=== PATIENT | female | born 1960 | race Caucasian/White ===

== ENCOUNTER 2018-04-15 10:01 | Outpatient (CLI) | payer OTHER ==
[2018-04-15] MEDS ORDERED: Gadobenate Dimeglumine 529 MG/1 ML (20ML VIAL) ONE (10:46)
--- NOTE | 2018-04-15 15:04 | MRI ---
MRI BRAIN WITH AND WITHOUT CONTRAST: Date: 04/15/18 HISTORY: Speech impairment x2 weeks. Brain tumor removal. COMPARISON: Prior MRI performed at [facility] is not available. TECHNIQUE: Brain MRI is performed with and without intravenous Gadolinium administration. Multisequential, multi planar imaging is performed. FINDINGS: There is evidence of hemorrhage, vasogenic edema involving a mass centered in the left temporal lobe. There is mild sulcal effacement of the left temporal sulci. No significant midline shift. No evidenc e of hydrocephalus. There is associated T2 and STIR signal hyperintensity. On the postcontrast images , there is peripheral heterogeneous enhancement. This lesion measures 2.6 cm mediolateral x 2.6 cm an terior posterior x 2.0 cm craniocaudal. Additional areas of abnormal enhancement in the cerebrum and cerebellum are not appreciated. Central arterial flow-voids are maintained. Absent restricted diffusion. No significant opacification of the paranasal sinuses. IMPRESSION: Partially hemorrhagic, peripherally enhancing lesion involving the left temporal lobe. Imaging featur es are worrisome for high grade neoplasm, either primary or metastatic. POS: [facility]
== END 2018-04-15 10:02 | disposition home or self-care (01) ==
LOC: MRI 10:01
PROVIDERS: ATTEND Surgery
DX: G93.9 Disorder of brain, unspecified (principal)
CPT/HCPCS: 70553; A9579

== ENCOUNTER 2018-04-15 11:30 | Inpatient (IN) | payer OTHER ==
[2018-04-16] MEDS ORDERED: Bacitracin Zinc Ointment 30 gm TUBE ONE (06:29)
[2018-04-16] MEDS ORDERED: Sodium Chloride 0.9% 10 ML ONE (06:29)
[2018-04-16] MEDS ORDERED: Thrombin 5000 UNITS/5 ML VIAL ONE (06:29)
[2018-04-16] MEDS ORDERED: CEFAZOLIN 2 GM/50 ML BAG ONE (06:33)
[2018-04-16] MEDS ORDERED: Midazolam HCl 2 mg/2 ml Vial ONE (06:59)
[2018-04-16] MEDS ORDERED: Albumin 5% 0 ML ONE (07:01)
[2018-04-16] MEDS ORDERED: Fentanyl 250 MCG/5 ML VIAL ONE (07:01)
[2018-04-16] MEDS ORDERED: levETIRAcetam 500 MG/100 ML PREMIX BAG ONE (07:02)
[2018-04-16] MEDS ORDERED: levETIRAcetam 1000 MG/100 ML PREMIX BAG ONE (07:02)
[2018-04-16 09:41] VITALS: BMI 35.2
[2018-04-16] MEDS ORDERED: SUGAMMADEX SODIUM 200 MG/2 ML VIAL ONE (09:50)
[2018-04-16] MEDS ORDERED: Fentanyl 100 MCG/2 ML VIAL ONE (10:07)
[2018-04-16] MEDS ORDERED: Promethazine HCl 25 MG/ML VIAL SLOW IVP PRN (10:52)
[2018-04-16] MEDS ORDERED: Ondansetron HCl/PF 4 MG/2 ML Vial IVP PRN (10:52)
[2018-04-16] MEDS ORDERED: HYDROmorphone 2 MG/ML VIAL SLOW IVP PRN (10:52)
[2018-04-16] MEDS ORDERED: PACU-Morphine 4MG/ML VIAL SLOW IVP PRN (10:52)
[2018-04-16] MEDS ORDERED: Morphine Sulfate 2 MG/ML SYRINGE SLOW IVP PRN (10:52)
[2018-04-16] MEDS ORDERED: Promethazine HCl 25 MG/ML VIAL IM PRN (10:52)
[2018-04-16] MEDS ORDERED: Senokot S 8.6-50 MG TAB PO PRN (10:58)
[2018-04-16] MEDS ORDERED: Ondansetron PF 4 MG/2 ML Vial IVP PRN (10:58)
[2018-04-16] MEDS ORDERED: Dexamethasone 20 MG/5 ML VIAL ONE (12:09)
[2018-04-16] MEDS ORDERED: PROPOFOL 200 MG/20 ML VIAL ONE (12:09)
[2018-04-16] MEDS ORDERED: Lidocaine 1% PF 5 ML VIAL ONE (12:09)
[2018-04-16] MEDS ORDERED: Ondansetron PF 4 MG/2 ML Vial ONE (12:09)
[2018-04-16] MEDS: Sodium Chloride 0.9% 1,000 ML IV SCH (12:32)
[2018-04-16] MEDS ORDERED: Metoprolol Tartrate 5 MG/5 ML VIAL ONE (13:19)
[2018-04-16] MEDS: Labetalol HCl 100 MG/20 ML VIAL SLOW IVP PRN (13:22)
[2018-04-16] MEDS: Dexamethasone 4 MG TAB PO SCH ×3 (13:22→20:27)
[2018-04-16] MEDS: CEFAZOLIN 2 GM/50 ML-DEXTROSE 2 GM in Premix Bag 1 BAG IVPB SCH ×2 (13:23→22:03)
[2018-04-16] MEDS: HYDROcodone/Acetaminophen 5/325 mg Tablet PO PRN (16:15)
--- NOTE | 2018-04-16 18:29 | OP ---
DATE OF PROCEDURE: 04/16/2018 OPERATING ROOM: OR 11. 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 PROCEDURE: Left temporal stereotactic craniotomy for tumor resection with use of intraoperative stereotaxy. DESCRIPTION OF PROCEDURE: After informed consent was obtained from the patient, the patient was brought to OR 11. Proper patient pause and identification was carried out. She was placed in excellent general endotracheal anesthesia and positioned supine on the OR table with a generous bump placed under her left hemithorax and her head turned to the right. Her head was secured with the Nguyen ariane head control clerk and the stereotactic frame and markers registered. We identified the boundaries of the tumor. A linear kassandra was made over this area. This area was sterilely cleansed, prepared, and draped, and a small amount of hair was clipped. Following sterile cleansing, preparation, draping, and confirmation of sterile stereotactic registration, we then opened the linear incision. Ciarra hole was fashioned and a craniotomy was performed. The dura was opened. Tumor was encountered. This was taken out. Hemostasis was maximized. 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 Copious irrigation occurred throughout. The wound was then maximally hemostased, copiously irrigated. The bone was then reapproximated with titanium plates and screws and closed in anatomical layers. The patient then emerged from anesthesia. Job ID: [id number]
[2018-04-16] MEDS: TROSPIUM 20 MG TABLET PO SCH (20:27)
[2018-04-16] MEDS: Atorvastatin Calcium 10 MG TAB PO SCH (20:27)
[2018-04-16] MEDS: levETIRAcetam 500 MG TAB PO SCH (20:27)
[2018-04-17] MEDS: Sodium Chloride 0.9% 1,000 ML IV SCH ×2 (00:16→13:41)
[2018-04-17] MEDS: Acetaminophen 325 MG TAB PO PRN ×2 (00:17→18:30)
[2018-04-17] MEDS: CEFAZOLIN 2 GM/50 ML-DEXTROSE 2 GM in Premix Bag 1 BAG IVPB SCH ×3 (05:27→21:51)
[2018-04-17 05:41] LABS: Hemoglobin 13.8 g/dL (12.0-16.0); Mean Corpuscular HGB CONC 33.9 g/dL (32.0-36.0); Mean Corpuscular Hemoglobin 30.6 pg (27.0-31.0); Mean Corpuscular Volume 90.2 fL (78.0-98.0); Mean Platelet Volume 7.5 fL (7.4-10.4); Platelet Count 252 thou/uL (130-400); RBC Distribution Width 12.5 % (11.5-14.5); Red Blood Cell (RBC) Count 4.52 mill/uL (4.20-5.40); White Blood Cell (WBC) Count 20.3 thou/uL (4.8-10.8)
[2018-04-17 05:59] LABS: Anion Gap 15 mmol/L (10-20); BUN (Urea Nitrogen) 22 mg/dL (9.8-20.1); Calc. Creatinine Clearance 128 mL/min (70-130); Carbon Dioxide 21 mmol/L (22-29); Chloride 107 mmol/L (98-107); Estimated GFR-MDRD 79; Glucose 153 mg/dL (70-105); Potassium 4.5 mmol/L (3.5-5.1); Sodium 138 mmol/L (136-145)
[2018-04-17 06:18] LABS: Band 8 % (5-11); Lymphocytes 3 % (21-51); MDiff Complete? YES; Monocytes 4 % (0-10); Neutrophil 85 % (42-75)
--- NOTE | 2018-04-17 07:37 | CT ---
CT OF THE BRAIN WITHOUT CONTRAST: Date: 04/17/18 INDICATION: History of craniotomy with tumor removal. COMPARISON: Prior MRI of the brain dated 04/15/18. FINDINGS: There is a left parietotemporal craniectomy. There is a resection cavity involving the left lateral t emporal and parietal lobes with associated gas, edema, and hemorrhage filling the resection cavity in the site of the previously seen partially hemorrhagic lesion of the left temporoparietal region. Sma ll amount of pneumocephalus is seen overlying the resection cavity and underlying the craniectomy fla p. Small amount of pneumocephalus is seen along the anterior aspect of the left cranial vault. No mid line shift is grossly evident. No hydrocephalus is noted. No definite acute infarct is noted. Basilar cisterns remain patent. Mastoid air cells are clear. IMPRESSION: 1. Postoperative changes from a left parietotemporal craniectomy with interval resection of previous ly seen partially hemorrhagic lesion involving the left parietotemporal lobe. There is gas and hemorr arielle, as well as edema, seen involving the resection bed. There is scattered pneumocephalus within th e brain. 2. No evidence of hydrocephalus or gross midline shift. POS: [facility]
[2018-04-17] MEDS: Venlafaxine HCl XR 75 MG CAP PO SCH (09:47)
[2018-04-17] MEDS: levETIRAcetam 500 MG TAB PO SCH ×2 (09:47→21:51)
[2018-04-17] MEDS: Dexamethasone 4 MG TAB PO SCH (09:47)
[2018-04-17] MEDS: TROSPIUM 20 MG TABLET PO SCH ×2 (09:47→21:51)
[2018-04-17] MEDS: HYDROcodone/Acetaminophen 5/325 mg Tablet PO PRN (10:43)
--- NOTE | 2018-04-17 11:03 | PRG ---
DATE OF SERVICE: SUBJECTIVE: Ms. Patel is postoperative day 1 from left inferior parietal lobule high-grade glioma resection stereotactic craniotomy. She has [id number] dysnomia and repetition, speech abnormality this morning, but otherwise is able to state words appropriately. She has a nonfocal motor exam. Her head wrap remains in place. We are continuing prophylactic levetiracetam and Decadron and will begin an 8-day taper in the next couple days. We will plan transfer to the floor and I anticipate either inpatient rehabilitation versus home prep sometime over the weekend. We will consult Physiatry. Job ID: [id number]
[2018-04-17] MEDS: Dexamethasone 1 MG TAB PO SCH ×2 (12:09→18:09)
--- NOTE | 2018-04-17 16:05 | ULT ---
ULTRASOUND WITH DOPPLER DUPLEX VENOUS LOWER EXTREMITIES BILATERAL: HISTORY: 58-year-old female with bilateral lower extremity edema. Prolonged immobility. TECHNIQUE: Color flow Doppler, spectral waveform analysis of pulsed Doppler, and grimaldo-scale imaging with emilio uli and augmentation, were used to evaluate the bilateral common femoral, femoral, popliteal, diversified crops farmworker ior tibial, and superficial femoral, veins; and the proximal portions of the profunda femoral and gre ater saphenous, veins. FINDINGS: There is normal compressibility, demonstration of blood flow by color Doppler and pulsed Doppler, and response to augmentation, in all interrogated veins. IMPRESSION: Negative. No deep vein thrombosis in the bilateral lower extremities. jn[] POS: [facility]
--- NOTE | 2018-04-17 19:24 | CON ---
DATE OF CONSULTATION: 04/17/2018 SERVICE: Pulmonary Medicine. REASON FOR CONSULT: ICU patient. HISTORY OF PRESENT ILLNESS: The patient is a 58-year-old white female with past medical history significant for about a week of word-finding difficulty. Ultimately, an MRI of the brain was performed and she had a partially hemorrhagic mass in the left cerebrum. She underwent an elective excision of that lesion yesterday and was placed in the ICU overnight for very close observation to make certain she did not have any significant neurologic deterioration. She presented to the hospital in her usual state of health. She has no history of lung disease. Denies fevers, chills, nausea, or vomiting. Pain is under very good control right now. She did not have any significant neurologic changes overnight. She continues to have a little bit of word-finding difficulties. PAST MEDICAL HISTORY: 1. Dyslipidemia. 2. Hypertension. 3. Coronary artery disease. 4. Obstructive sleep apnea. 5. Seizure disorder. 6. Remote history of tobacco abuse. 7. Major depressive disorder, currently euthymic. PAST SURGICAL HISTORY: 1. Right foot surgery for plantar fasciitis. 2. Cholecystectomy. 3. Bladder suspension. 4. Tubal ligation. 5. Cardiac catheterization. SOCIAL HISTORY: Negative for current significant tobacco, alcohol, or illicit drug use. She has no exposure to chemicals, dust, asbestos, or tuberculosis. She is . FAMILY HISTORY: Noncontributory. ALLERGIES: NO KNOWN DRUG ALLERGIES. MEDICATIONS: List of her inpatient medications was reviewed. No specific updates were made at this time. REVIEW OF SYSTEMS: General, head, ears, eyes, nose, throat, cardiovascular, respiratory, , musculoskeletal, neurologic, and skin are negative except as mentioned in the HPI. PHYSICAL EXAMINATION: VITAL SIGNS: Afebrile. Pulse is 69, blood pressure 138/77, respirations 18, and saturation 98% on room air. GENERAL: The patient is awake, alert, in no apparent distress. LUNGS: Excellent air entry with no prolonged expiratory phase, wheezing, rhonchi, or crackles present. HEART: Normal rate, regular. ABDOMEN: Soft, nontender, nondistended. Bowel sounds are positive. MUSCULOSKELETAL: No cyanosis or clubbing. There is no pitting in the bilateral lower extremities. NEUROLOGIC: Grossly nonfocal. LABORATORY DATA: WBC 20.3, hemoglobin 13.8, platelets 252,000. INR 1.1. Creatinine 0.75. Basic metabolic profile is otherwise unremarkable. IMAGING DATA: CT of the brain demonstrates postop changes from a left parietotemporal craniectomy with expected edema, and pneumocephalus. ASSESSMENT: 1. Brain mass, pathology pending. 2. History of seizure. 3. Leukocytosis, likely secondary to leukemoid reaction, and/or Decadron. DISCUSSION AND PLAN: The patient will remain in the ICU until cleared for transition to floor by Neurosurgery. Pulmonary Critical Care will continue to follow in this location, but when she arrives on the floor, she will have no further requirements per my opinion, and I will sign off. Please call with additional questions or concerns moving forward, should she leave the ICU. 70 minutes have been devoted to this patient in various activities. I personally reviewed all imaging studies and laboratory data noted within this document. For fifty percent of this time, I was interacting with the patient at the bedside or coordinating care with the care team. For the remainder of the time I was immediately available to the patient in the hospital unit. Job ID: [id number] [facility]
[2018-04-17] MEDS ORDERED: Piperacillin/Tazobactam 4.5 GM VIAL ONE (19:58)
[2018-04-17] MEDS: Atorvastatin Calcium 10 MG TAB PO SCH (21:51)
[2018-04-18] MEDS: Dexamethasone 1 MG TAB PO SCH ×5 (00:29→23:51)
[2018-04-18] MEDS: Sodium Chloride 0.9% 1,000 ML IV SCH ×2 (03:56→13:46)
[2018-04-18] MEDS: Acetaminophen 325 MG TAB PO PRN ×2 (05:10→19:44)
[2018-04-18] MEDS: CEFAZOLIN 2 GM/50 ML-DEXTROSE 2 GM in Premix Bag 1 BAG IVPB SCH ×3 (05:11→22:12)
[2018-04-18] MEDS: TROSPIUM 20 MG TABLET PO SCH (08:58)
[2018-04-18] MEDS: Oxybutynin 5 MG TAB PO SCH (08:58)
[2018-04-18] MEDS: Venlafaxine HCl XR 75 MG CAP PO SCH (08:58)
[2018-04-18] MEDS: levETIRAcetam 500 MG TAB PO SCH ×2 (08:58→20:06)
[2018-04-18] MEDS ORDERED: VESICARE 10 MG PO SCH (09:30)
--- NOTE | 2018-04-18 09:49 | PRG ---
DATE OF SERVICE: 04/18/2018 NEUROSURGERY PROGRESS NOTE I saw Ms. Patel on the surgical floor this morning. She tells me it is still hard to talk correctly since she has difficulty with interpreting language and finding the right words to say, but she is able to communicate with some effort. is concerned that she is not taking her Pristiq or her VESIcare for incontinence and for her depression. Overnight, the vitals have been stable. I do not see any fevers recorded. Ms. Patel is wide awake. She has some dysphagia more so than any right-sided weakness. In fact, the extremities are moving quite well. She seems safe for activities of daily living with the exception of communication. Ms. Patel's dressing can be removed. She can start to bathe. She can pat the incision dry with a towel should it get wet or have shampoo cover it. She can be ready for discharge either today or tomorrow, in my view. The reports that he is not very excited about the possibility of inpatient rehabilitation and would rather take her home and get outpatient therapy should she need it. Speech therapy would be the most beneficial therapy, in my view. We will make arrangements for her to be discharged when she is safe. Job ID: [id number]
[2018-04-18] MEDS: Atorvastatin Calcium 10 MG TAB PO SCH (20:06)
[2018-04-19] MEDS: Sodium Chloride 0.9% 1,000 ML IV SCH (04:07)
[2018-04-19] MEDS: Acetaminophen 325 MG TAB PO PRN ×2 (04:07→10:13)
[2018-04-19] MEDS: Labetalol HCl 100 MG/20 ML VIAL SLOW IVP PRN (04:20)
[2018-04-19] MEDS: CEFAZOLIN 2 GM/50 ML-DEXTROSE 2 GM in Premix Bag 1 BAG IVPB SCH (05:30)
[2018-04-19] MEDS: Dexamethasone 1 MG TAB PO SCH (05:30)
[2018-04-19 07:48] VITALS: BP 131/79; TEMP 97.7
[2018-04-19] MEDS: levETIRAcetam 500 MG TAB PO SCH (08:24)
[2018-04-19] MEDS: Venlafaxine HCl XR 75 MG CAP PO SCH (08:24)
[2018-04-19] MEDS: Oxybutynin 5 MG TAB PO SCH (08:25)
[2018-04-19] MEDS ORDERED: VESICARE 10 MG PO SCH (09:00)
--- NOTE | 2018-04-19 09:33 | PRG ---
DATE OF SERVICE: I saw Ms. Patel in her hospital room this morning. She was up in the bathroom as I came in. When I returned a few minutes later, she was found walking around the room. She is actually doing quite well. She is well balanced in her feet. She is walking. She is taking care of herself. She has a bit of expressive dysphasia, but otherwise doing well. She thinks she can manage at home. She has support of her and family. Her parents live next door. She will need follow up in the Oncology Clinic for chemoradiotherapy and a followup with Dr. Cuevas in two weeks to remove josefina. We can make arrangements for her to go home today. Job ID: [id number]
[2018-04-19] MEDS ORDERED: Dexamethasone 1 MG TAB PO SCH (12:00)
--- NOTE | 2018-04-21 09:59 | DIS ---
DATE OF ADMISSION: 04/16/2018 DATE OF DISCHARGE: 04/19/2018 ADMITTING PHYSICIAN: Fran Cuevas MD. HOSPITAL COURSE: The patient was brought in for surgery, left temporal stereotactic craniotomy for tumor resection. The surgery went well. She was observed in the hospital. She was seen by a Critical Care, Pulmonology, Physical Therapy, and worked with her. Once she was able to take care of herself, use the restroom, and feed herself, she was discharged home on 04/19/2018. She was brought into the hospital on 04/16/2018. Job ID: [id number]
[2018-04-21] MEDS ORDERED: Dexamethasone 1 MG TAB PO SCH (12:00)
== END 2018-04-19 10:27 | disposition home or self-care (01) | DRG 42 ==
LOC: SURG A 04-16 05:58 → EDSTATUS 04-16 11:30 → CCU 04-16 11:40 → SURG A 04-17 13:50
PROVIDERS: ADMIT Surgery; ATTEND Surgery
PROC: D020DZZ Stereotactic Other Photon Radiosurgery of Brain (ICD-10-PCS; principal; 2018-04-16)
DX: C71.2 Malignant neoplasm of temporal lobe (principal); E78.5 Hyperlipidemia, unspecified; I10 Essential (primary) hypertension; I25.10 Atherosclerotic heart disease of native coronary artery without angina pectoris; G47.33 Obstructive sleep apnea (adult) (pediatric); G40.909 Epilepsy, unspecified, not intractable, without status epilepticus; Z87.891 Personal history of nicotine dependence; F32.9 Major depressive disorder, single episode, unspecified; D72.829 Elevated white blood cell count, unspecified; R47.89 Other speech disturbances
CPT/HCPCS: 36415; 70450; 80048; 85025; 88307; 88331; 88334; 93970; C1713; G8978-GP-CM; G8979-GP-CJ; G8987-GO-CK; G8988-GO-CI; J0131; J1100; J1642; J1953; J2001; J2250; J2405; J2543; J2704; J3010; J3370; J3490; J8540; P9045

== ENCOUNTER 2018-04-15 12:14 | Outpatient (CLI) | payer OTHER ==
[2018-04-15 13:02] LABS: Hemoglobin 16.2 g/dL (12.0-16.0); Mean Corpuscular HGB CONC 33.7 g/dL (32.0-36.0); Mean Corpuscular Hemoglobin 29.9 pg (27.0-31.0); Mean Corpuscular Volume 88.8 fL (78.0-98.0); Mean Platelet Volume 7.4 fL (7.4-10.4); Platelet Count 358 thou/uL (130-400); RBC Distribution Width 12.6 % (11.5-14.5); Red Blood Cell (RBC) Count 5.43 mill/uL (4.20-5.40); White Blood Cell (WBC) Count 19.9 thou/uL (4.8-10.8)
[2018-04-15 13:18] LABS: INR-International Normal Ratio 1.1; Prothrombin Time 13.8 SEC (12.0-14.7)
[2018-04-15 13:26] LABS: PTT 21.8 SEC (22.9-36.1)
[2018-04-15 13:32] LABS: Anion Gap 12 mmol/L (10-20); BUN (Urea Nitrogen) 27 mg/dL (9.8-20.1); Calc. Creatinine Clearance 0 mL/min (70-130); Calcium 9.1 mg/dL (7.8-10.44); Carbon Dioxide 25 mmol/L (22-29); Chloride 103 mmol/L (98-107); Estimated GFR-MDRD 77; Glucose 120 mg/dL (70-105); Potassium 4.2 mmol/L (3.5-5.1); Sodium 136 mmol/L (136-145)
--- NOTE | 2018-04-15 22:07 | EKG ---
Test Reason : Blood Pressure : / mmHG Vent. Rate : 063 BPM Atrial Rate : 063 BPM P-R Int : 132 ms QRS Dur : 084 ms QT Int : 386 ms P-R-T Axes : 050 019 039 degrees QTc Int : 395 ms Normal sinus rhythm Normal ECG No previous ECGs available Confirmed by Anum HENRIQUEZ ([id number]) on 04/15/2018 10:07:24 PM Referred By: ELISEO Confirmed By:Anum HENRIQUEZ
== END 2018-04-15 12:15 | disposition home or self-care (01) ==
LOC: LABBT 12:14
PROVIDERS: ATTEND Surgery
DX: Z01.818 Encounter for other preprocedural examination (principal); G93.9 Disorder of brain, unspecified
CPT/HCPCS: 80048; 85027; 85610; 85730; 93005; 93010

== ENCOUNTER 2018-06-01 12:33 | Outpatient (CLI) | payer OTHER ==
--- NOTE | 2018-06-01 15:48 | MRI ---
PRE AND POST CONTRAST ENHANCED MRI BRAIN: History: Glioblastoma status post resection. Technique: Pre and post contrast enhanced MRI images of the brain obtained. FINDINGS: Images demonstrate surgical changes in the posterior left temporal region. There is a post-surgical c avitary collection with fluid and hyperintense material seen on T2 weighted sequences. Post-surgical rim enhancement is seen along the margin of the resection cavity. No evidence of areas of diffuse restriction to suggest acute strokes. No other significant intracranial mass lesions seen. IMPRESSION: 1. Posterior left temporal surgical cavity with adjacent areas of enhancement compatible with post-elizalde rgical changes. Follow up MRI is recommended. POS: [facility]
== END 2018-06-01 12:34 | disposition home or self-care (01) ==
LOC: SCSMRI 12:33
PROVIDERS: ATTEND Radiology Radiation Oncology
DX: C71.9 Malignant neoplasm of brain, unspecified (principal); Z98.890 Other specified postprocedural states
CPT/HCPCS: 70553

== ENCOUNTER 2018-08-17 10:02 | Outpatient (CLI) | payer OTHER ==
[~2018-08-17 10:02] MED LIST: Gadobenate Dimeglumine 529 MG/1 ML (20ML VIAL) ONE
--- NOTE | 2018-08-17 11:44 | MRI ---
[facility] brain with and without contrast: DATE: 08/17/2018 HISTORY: 58-year-old female status post resection of glioblastoma. C 71.9 malignant neoplasm of brain. COMPARISON: MRI of 06/01/2018 TECHNIQUE: Multiplanar, multisequence MRI of the brain performed pre- and post-IV injection of gadolinium based contrast agent. FINDINGS: Again noted are the left parietal craniotomy changes, deep to which there is a postsurgical collectio n in the left parietal lobe parenchyma (encroaching on the posterior superior aspect of the left temp oral lobe) which currently measures approximately 4 x 2 x 4 cm and has not significantly changed in s ize. It has rim enhancement high T2 signal at tissue surrounding it may represent a combination of gl iosis and mild edema. Internal contents have complex signal, predominantly T2 hyperintense. No bulky nodular enhancement identified. Ex vacuo dilation of the trigone of the left lateral ventricle and o ccipital horn of the left lateral ventricle are now slightly more prominent. No obstructive hydroceph alus. No new enhancing intra-axial lesions. No mass effect or midline shift. IMPRESSION: Left parietal craniotomy, deep to which there are postsurgical changes in the left parietal lobe brai n parenchyma.. Rim enhancement surrounding the postsurgical intra-axial collection is consistent with granulation tissue. No conclusive evidence of neoplasm recurrence. Continued follow-up recommended.
== END 2018-08-17 10:03 | disposition home or self-care (01) ==
LOC: SCSMRI 10:02
PROVIDERS: ATTEND Internal Medicine Hematology & Oncology
DX: C71.9 Malignant neoplasm of brain, unspecified (principal); Z98.890 Other specified postprocedural states
CPT/HCPCS: 70553; A9577

== ENCOUNTER 2018-09-25 11:42 | Outpatient (CLI) | payer OTHER ==
[~2018-09-25 11:42] MED LIST changes: -Gadobenate Dimeglumine 529 MG/1 ML (20ML VIAL) ONE; +Iopamidol 370 76% 100 ML VIAL ONE
--- NOTE | 2018-09-25 12:39 | CT ---
CT angiogram of the chest: 09/25/2018 COMPARISON: None HISTORY: Intracranial malignancy, shortness of breath, pleural effusion, assess for pulmonary embolis m TECHNIQUE: Axial CT imaging at 2.5 mm intervals from the thoracic inlet through the upper abdomen wit h IV contrast using CT angiogram protocol with coronal and oblique sagittal 3-D reformatted imaging FINDINGS: The imaged upper abdomen appears grossly unremarkable. There is no pleural, pericardial, or mediastinal fluid noted. There is no lymphadenopathy noted within the chest. The systemic arterial structures appear unremarkable. There is no pneumothorax noted on either side. There is minimal increased density noted within the left lower lobe posterior/medial on image 97, sug gesting scar and/or volume loss. No endobronchial lesion identified on either side. No discrete pulmonary parenchymal mass lesion or nodule is noted on either side. Review of the osseous structures demonstrates no worrisome lytic or blastic bone lesion. There is adequate opacification of the pulmonary arterial vasculature. There is no pulmonary arterial filling defects seen to suggest the presence of acute pulmonary arterial embolism. IMPRESSION: Unremarkable CT angiogram of the chest.
== END 2018-09-25 11:43 | disposition home or self-care (01) ==
LOC: CT 11:42
PROVIDERS: ATTEND Internal Medicine Hematology & Oncology
DX: R06.02 Shortness of breath (principal); C71.9 Malignant neoplasm of brain, unspecified
CPT/HCPCS: 71275; Q9967

== ENCOUNTER 2018-10-26 10:44 | Outpatient (CLI) | payer OTHER ==
--- NOTE | 2018-10-26 13:12 | MRI ---
MRI BRAIN WITH AND WITHOUT CONTRAST: DATE: 10/26/18 HISTORY: 58-year-old female with glioblastoma C71.9, malignant neoplasm of brain, unspecified, status post s urgical resection. Follow-up. COMPARISON: 08/17/18. TECHNIQUE: Multiple sequences obtained in axial, sagittal, and coronal planes; pre and post IV injection of gado linium-based contrast agent: 20 mL Multihance. FINDINGS: Unfortunately, the precontrast T1 weighted sequence was not performed due to error. Again noted are the left parietal craniotomy changes, deep to which there is a postsurgical collectio n in the left parietal lobe parenchyma (encroaching on the posterior superior aspect of the left temp oral lobe) which still measures 4 x 2 x 4 cm, not significantly changed in size. Again noted is the s urrounding T2 - hyperintense intra-axial signal which may represent a combination of gliosis and mild edema. The internal contents of this collection has complex signal, predominantly T2 hyperintense. B ecause no precontrast T1 weighted sequence was obtained, it is difficult to determine how much of the T1 - hyperintense signal represents intrinsic T1 shortening versus how much is T1 shortening due to contrast enhancement. Otherwise, no significant interval change is visualized. There is no bulky nodu lar enhancement. Again noted is the ex vacuo dilation of the trigone and occipital horn of the left l ateral ventricle. The ex vacuo dilation of the occipital horn and trigone of the left lateral ventricle has become grea ter than on 06/01/18, indicating that there is probably less component of edema, and more component of gliosis and encephalomalacia. No obstructive hydrocephalus. No new satellite enhancing lesions. No mass effect or midline shift. There is a thin 3.5 x 2.5 x 0.3 cm postoperative extra axial fluid loni ection, between the bone flap and the underlying postsurgical granulation tissue mentioned above. IMPRESSION: 1. Left parietal craniotomy, deep to which there are postsurgical changes in the left parietal l obe brain parenchyma. 2. Unfortunately, the precontrast T1 weighted sequence was inadvertently omitted. The MRI techno logist will attempt to contact the patient and bring her back tomorrow for the noncontrast T1 weighte d sequence. 3. Otherwise, no definite interval change detected since 08/17/18. 4. An addendum will be issued once the patient is brought back for the omitted noncontrast T1 we ighted sequence. JOSE Muniz POS: [facility]
== END 2018-10-26 10:45 | disposition home or self-care (01) ==
LOC: BICMRI 10:44 → MRI 10:45
PROVIDERS: ATTEND Internal Medicine Hematology & Oncology
DX: C71.9 Malignant neoplasm of brain, unspecified (principal); Z98.890 Other specified postprocedural states
CPT/HCPCS: 70553

== ENCOUNTER 2018-12-21 08:52 | Outpatient (CLI) | payer OTHER ==
[2018-12-21] MEDS ORDERED: Gadobenate Dimeglumine 529 MG/1 ML (20ML VIAL) ONE (09:00)
--- NOTE | 2018-12-21 11:13 | MRI ---
BRAIN MRI WITH AND WITHOUT CONTRAST: HISTORY: Tumor resection. Glioblastoma multiforme. COMPARISON: 10/26/2018, 08/17/2018. FINDINGS: Gradient echo sequence: Stable hemosiderin deposition at the surgical site. Calvarium: Stable postsurgical changes along the left calvarium. Midline brain parenchyma: Unremarkable. Cerebrum:There is a small, slightly decreasing fluid collection underneath the left calvarial bone fl ap. There is intrinsic T1 hyperintensity with associated intrinsic T2 and FLAIR hyperintensity involving an intra-axial collection adjacent to the left occipital and temporal lobe. Currently, this collection measures 3.2 x 1.5 x 2.8 cm (previously measuring 1.9 x 3.1 x 3.4 cm and 2.0 x 4.0 x 4.0 cm). On the postcontrast images, there is stable peripheral rim enhancement. Stable adjacent catalina cic and gliotic changes. Ventricles: Stable ex vacuo dilatation of the trigone of the left lateral ventricle. Sinuses and mastoid air cells: Adequate aeration. Diffusion: Central arterial flow is maintained. Absent restricted diffusion. Postcontrast images:No evidence of new parenchymal enhancement. IMPRESSION: 1. Stable postoperative changes. Redemonstration of a rim enhancement surrounding postsurgical intra- axial collection, consistent with granulation tissue. The degree of granulation tissue has decreased. Stable adjacent brain parenchymal malacic and gliotic changes. 2. No evidence of new brain parenchymal hemorrhage. 3. Results of the study discussed with Dr. Webster 12/21/2018 at 11:10 AM, Code CR Transcribed Date/Time: 12/21/2018 12:08 PM
== END 2018-12-21 08:53 | disposition home or self-care (01) ==
LOC: SCSMRI 08:52
PROVIDERS: ATTEND Internal Medicine Hematology & Oncology
DX: C71.9 Malignant neoplasm of brain, unspecified (principal); Z98.890 Other specified postprocedural states
CPT/HCPCS: 70553; A9577

== ENCOUNTER 2019-02-22 09:15 | Outpatient (CLI) | payer OTHER ==
[~2019-02-22 09:15] MED LIST changes: +Gadobenate Dimeglumine 529 MG/1 ML (20ML VIAL) ONE; -Iopamidol 370 76% 100 ML VIAL ONE
[2019-02-22 10:24] LABS: Estimated GFR-MDRD - POC Greater than 90
--- NOTE | 2019-02-22 15:04 | MRI ---
MRI OF BRAIN WITH AND WITHOUT CONTRAST: INDICATION: Followup glioblastoma resection. COMPARISON: Comparison is made to prior MRI exams of 12/21/2018 and 10/26/2018. FINDINGS: Postoperative changes are again noted in the left temporo-occipital region extending through the dura l surface. Postoperative defect continues to measure approximately 3 cm AP dimension. There is geovanni pheral ring enhancement and peripheral edema as seen on FLAIR sequence. The surrounding edema and en hancement has not significantly changed. The size of this single collection at the operative site is unchanged. No other enhancement or abnormal signal. IMPRESSION: Stable operative findings in the left temporo-occipital region. The peripheral enhancement and surro unding edema appear stable from the prior exam. Findings related to Dr. Webster. CODE CR POS: [facility]
== END 2019-02-22 09:16 | disposition home or self-care (01) ==
LOC: SCSMRI 09:15
PROVIDERS: ATTEND Internal Medicine Hematology & Oncology
DX: C71.9 Malignant neoplasm of brain, unspecified (principal)
CPT/HCPCS: 70553; 82565; A9577

== ENCOUNTER 2019-04-19 08:46 | Outpatient (CLI) | payer OTHER ==
--- NOTE | 2019-04-19 11:00 | MRI ---
MRI BRAIN WITH AND WITHOUT CONTRAST: DATE: 04/19/2019. HISTORY: A 59-year-old female status post surgical resection of malignant brain tumor (glioblastoma). Followu p. As requested, this report was called STAT to Dr. Jeanette Webster at 10:31 a.m. on 04/19/2019. COMPARISON: 02/22/2019 and 12/21/2018. TECHNIQUE: Multiple sequences obtained in axial, sagittal, and coronal planes; pre and post IV injection of gado linium-based contrast agent: 20 mL of MultiHance. FINDINGS: Again noted are the post craniotomy changes at the lateral junction between the posterior temporal, o ccipital, and parietal lobes, deep to which there is a mass that measures approximately 3 x 1.5 x 4 c m, suggestive of granulation tissue. It has a lining of rim enhancement, but no definite central enh ancement. There is associated gliosis and/or edema surrounding this. There is ex vacuo dilation of the trigone and occipital horn of the left lateral ventricle. No change in the enhancement pattern o r new enhancing lesions. No new mass, mass effect, obstructive hydrocephalus, midline shift, extraax ial fluid collection, or new hemorrhage. No interval change overall. No new areas of restricted dif fusion. IMPRESSION: 1. Postsurgical changes at the left temporoparietooccipital junction. 2. No interval change compared to 12/21/2018 and 02/22/2019. CODE CR JN R
== END 2019-04-19 08:47 | disposition home or self-care (01) ==
LOC: SCSMRI 08:46
PROVIDERS: ATTEND Internal Medicine Hematology & Oncology
DX: C71.9 Malignant neoplasm of brain, unspecified (principal); Z98.890 Other specified postprocedural states
CPT/HCPCS: 70553